=== PATIENT | male | born 1980 | race Hispanic/Latino ===

== ENCOUNTER 2021-09-28 01:34 | Emergency (ER) | payer BC ==
[~2021-09-28] VITALS: Ht 182.9 cm; Wt 100.2 kg
[2021-09-28 02:37] LABS: APPEARANCE,URINE CLEAR (CLEAR); BILIRUBIN,URINE NEGATIVE (NEGATIVE); COLOR,URINE YELLOW (YELLOW); GLUCOSE, URINE (UA) NEGATIVE (NEGATIVE); KETONES,URINE NEGATIVE (NEGATIVE); LEUKOCYTE ESTERASE ,URINE NEGATIVE (NEGATIVE); NITRATE,URINE NEGATIVE (NEGATIVE); OCCULT BLOOD,URINE NEGATIVE (NEGATIVE); PROTEIN,URINE NEGATIVE (NEGATIVE); UROBILINOGEN,URINE 0.2 mg/dL (0.2-1.0)
[2021-09-28 05:27] VITALS: BP 135/65
== END 2021-09-28 05:28 | disposition home or self-care (01) ==
LOC: EDH 01:34
DX: F43.8 Other reactions to severe stress (principal); R03.0 Elevated blood-pressure reading, without diagnosis of hypertension
CPT/HCPCS: 81003; 93005